=== PATIENT | male | born 1940 | race Caucasian/White ===

== ENCOUNTER 2017-10-12 08:28 | Outpatient (CLI) | payer MEDICARE ==
--- NOTE | 2017-10-12 09:38 | RAD ---
LUMBAR SPINE FOUR VIEWS: Exam included flexion and extension lateral views. History: 77-year-old male with low back pain radiating down to buttocks and hamstring for years. FINDINGS: Generalized disc osteophytosis and facet arthrosis. No abnormal translation between flexion and exten boubacar. No acute fracture. IMPRESSION: Lumbar spondylosis. No abnormal translation between flexion and extension. POS: [facility]
--- NOTE | 2017-10-12 10:16 | MRI ---
LUMBAR SPINE MRI WITHOUT IV CONTRAST: History: 77-year-old male with history of low back pain and pain radiating down into buttocks and hamstrings f or several years. Technique: Multiplanar, multisequence MR examination of the lumbar spine was performed. FINDINGS: There are generalized disc desiccation changes and ligament and facet hypertrophic changes. Conus med ullaris region is unremarkable, terminating at L1-2. T12-L1: There is some ligament and facet hypertrophic changes with slight indention of the dorsal lat eral recesses. L1-2: There is some generalized disc bulging with ligament and facet hypertrophic changes with mild l ateral recess stenosis. L2-3: There is mild central canal and lateral recess stenosis. L3-4: There is very severe central canal and lateral recess stenosis and moderate to severe bilateral foraminal stenosis. L4-5: Mild to moderate bilateral lateral recess stenosis at mild bilateral foraminal stenosis. L5-S1: Mild bilateral foraminal stenosis. No significant abnormal marrow signal. IMPRESSION: Generalized disc desiccation changes and ligament and facet hypertrophic changes. Multilevel variable severity canal, lateral recess, and foraminal stenosis most severe at L3-4 with very severe central canal and lateral recess stenosis. POS: [facility]
== END 2017-10-12 08:29 | disposition home or self-care (01) ==
LOC: TBSIIMAG 08:28
PROVIDERS: ATTEND Surgery
DX: M54.5 Low back pain (principal); M79.606 Pain in leg, unspecified; M47.816 Spondylosis without myelopathy or radiculopathy, lumbar region
CPT/HCPCS: 72110; 72148